=== PATIENT | male | born 1965 | race Caucasian/White ===

== ENCOUNTER 2022-10-17 15:28 | Emergency (ER) | payer OTHER, SELFPAY ==
[2022-10-17 15:36] VITALS: BP 134/71; PULSE 83; RESP 20; TEMP 35.8; O2SAT 95; BMI 33.1
--- NOTE | 2022-10-17 16:35 | ED.WOUNDLAC ---
HPI - Wound/Laceration General Chief Complaint: Laceration/Wound Stated Complaint: Cut L index finger with a wood chisle Time Seen by Provider: 10/17/22 15:53 History of Present Illness HPI narrative: This 57-year-old male comes in with a laceration to his left index finger. This occurred prior to arrival. 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 His tetanus was updated about 9 months ago. Related Data Home Medications Medication Instructions Recorded Confirmed atorvastatin 20 mg tablet 20 mg PO QDAY 06/23/22 06/23/22 clonazepam 0.5 mg tablet 0.5 mg PO QDAY 06/23/22 06/23/22 hydrochlorothiazide 25 mg tablet 25 mg PO QDAY 06/23/22 06/23/22 lisinopril 30 mg tablet 30 mg PO QDAY 06/23/22 06/23/22 pantoprazole 40 mg tablet,delayed 40 mg PO QDAY 06/23/22 06/23/22 release sertraline 150 mg capsule 150 mg PO QDAY 06/23/22 06/23/22 Previous Rx's Medication Instructions Recorded triamcinolone acetonide 0.1 % 1 applic topical BID #80 grams 06/23/22 topical cream Allergies Allergy/AdvReac Type Severity Reaction Status Date / Time No Known Allergies Allergy Unknown Verified 10/17/22 15:36 Review of Systems Status of ROS: Reports: 10 or more systems reviewed and unremarkable except as noted in History and below Narrative: Constitutional: No fevers, no weight gain or loss. Eyes: No discharge. No vision changes. HENT: No congestion, no sore throat, no ear pain. Cardiovascular: No chest pain, no palpitations. Respiratory: No shortness of breath, no wheezes, no cough. Gastrointestinal: No abdominal pain, no vomiting, no diarrhea. Genitourinary: No dysuria, no hematuria. Musculoskeletal: Normal range of motion. Left index finger laceration. Skin: No rashes, no pruritis. Neurological: No dizziness, weakness, sensory change, speech change. Endo/Heme/Allergies: No bruising or bleeding. No polydipsia. Pysch: no suicidality, no anxiety, no insomnia. All other systems reviewed and are negative. [facility] Medical History (Updated 10/17/22 @ 16:38 by Jad Balderas MD) History of asthma History of chronic obstructive lung disease Surgical History (Updated 06/01/22 @ 10:35 by Angeles Mckeon) History of cholecystectomy (2010) Status post carpal tunnel release Social History Smoking Status: Former smoker Do you use any of these nicotine containing products: None Second hand tobacco smoke exposure: No How often do you have a drink containing alcohol: monthly or less How many standard drinks containing alcohol do you have on a typical day: 1 or 2 How often do you have six or more drinks on one occasion: Never AUDIT-C Alcohol total score: 1 Non-prescribed substance use: denies use service: Yes Exam Narrative: Exam Narrative: Constitutional: Well-developed, well-nourished, no acute distress. HEENT: Normocephalic, atraumatic. Neck: Normal range of motion. Nontender. Supple. Heart: Intact distal pulses. Lungs: No chest discomfort. No wheezes, rhonchi, or rales. Abdomen: Nontender. Back: Normal range of motion. Extremities: Normal range of motion. 2 cm linear laceration across the dorsal aspect of the proximal portion of the left index finger. No tendon or vascular dysfunction. Skin: Intact. No rash. Warm. No erythema or pallor. Neurologic: No altered sensation. No weakness. Alert and oriented. Psychiatric: No suicidality. No anxiety or depression. No insomnia. Nursing notes and vitals signs are reviewed. Const: Vital Signs, click to edit/add: Vital Signs - 24 hr 10/17/22 15:36 Temperature 96.4 F L Pulse Rate [Pulse Oximeter] 83 Respiratory Rate 20 Blood Pressure [Le ft Upper Arm] 134/71 Pulse Oximetry 95 Oxygen Delivery Me thod Room Air Course Vital Signs Vital signs: Initial Vital Signs Temperature 96.4 F L 10/17/22 15:36 Temperature Source Temporal Artery Scan 10/17/22 15:36 Pulse Rate 83 10/17/22 15:36 Pulse Rhythm 10/17/22 15:36 Respiratory Rate 20 10/17/22 15:36 Blood Pressure 134/71 10/17/22 15:36 Blood Pressure Mean 92 10/17/22 15:36 Blood Pressure Position Supine 10/17/22 15:36 Pulse Oximetry 95 10/17/22 15:36 Oxygen Delivery Method 10/17/22 15:36 Vital Signs Temperature 96.4 F L 10/17/22 15:36 Pulse Rate 83 10/17/22 15:36 Respiratory Rate 20 10/17/22 15:36 Blood Pressure 134/71 10/17/22 15:36 Pulse Oximetry 95 10/17/22 15:36 Oxygen Delivery Method 10/17/22 15:36 Temperature 96.4 F L 10/17/22 15:36 Pulse Rate 83 10/17/22 15:36 Respiratory Rate 20 10/17/22 15:36 Blood Pressure 134/71 10/17/22 15:36 Pulse Oximetry 95 10/17/22 15:36 Oxygen Delivery Method 10/17/22 15:36 MDM - Wound/Laceration MDM Narrative Medical decision making narrative: This patient comes in with a laceration to his left index finger. The wound was cleansed and explored to its base. I did describe options for repair. The patient elected to have Dermabond applied. Wound edges were nicely approximated with this repair. A Band-Aid was then applied and instructions were given regarding wound care. Discharge Plan Discharge Clinical Impression: Finger laceration Patient Disposition: Home, Self-Care Condition: Improved Additional Instructions: Keep wound clean and dry. Follow up with MD or return if worsening. Prescriptions: No Action lisinopril 30 mg tablet 30 mg PO QDAY atorvastatin 20 mg tablet 20 mg PO QDAY clonazepam 0.5 mg tablet 0.5 mg PO QDAY sertraline 150 mg capsule 150 mg PO QDAY hydrochlorothiazide 25 mg tablet 25 mg PO QDAY pantoprazole 40 mg tablet,delayed release (DR/EC) 40 mg PO QDAY triamcinolone acetonide 0.1 % cream 1 applic topical BID Qty: 80 0RF Follow Up/Referrals: Homero Calderon MD [Primary Care Provider] - Stand Alone Forms: [employer] Info Instructions
== END 2022-10-17 16:51 | disposition home or self-care (01) ==
PROVIDERS: Emergency Provider Emergency Medicine Emergency Medical Services; PCP Internal Medicine
DX: S61.211A Laceration without foreign body of left index finger without damage to nail, initial encounter (principal); W26.9XXA Contact with unspecified sharp object(s), initial encounter
CPT/HCPCS: 12001; 99283; 99284

== ENCOUNTER 2023-01-16 16:27 | Emergency (ER) | payer OTHER, SELFPAY ==
[2023-01-16 16:41] VITALS: BP 148/88; PULSE 93; RESP 17; TEMP 36.3; O2SAT 96; BMI 32.5
--- NOTE | 2023-01-16 17:34 | ED_ITS ---
HPI - General Adult General Chief complaint: Cough Stated complaint: Covid induced bronchitis Time Seen by Provider: 01/16/23 16:36 History of Present Illness HPI narrative: Patient is a 57-year-old male with past medical history notable for remote tobacco use, asthma and possible COPD. A couple of days ago he developed a little bit of congestion and runny nose. Yesterday he developed a cough and today he tested positive for COVID. He says he has not terribly concerned about the COVID itself but he does have concerns about getting bronchitis as he says he often ends up with bronchitis when he gets sick. He has not had fevers, chest pain or shortness of breath. Otherwise is feeling well. No longer smokes. Related Data Home Medications Medication Instructions Recorded Confirmed hydrochlorothiazide 25 mg tablet 25 mg PO QDAY 06/23/22 11/09/22 lisinopril 30 mg tablet 30 mg PO QDAY 06/23/22 11/09/22 budesonide-formoterol HFA 160 2 puff inhalation BID 11/09/22 11/09/22 mcg-4.5 mcg/actuation aerosol inhaler vardenafil 20 mg tablet 20 mg PO 11/09/22 11/09/22 Previous Rx's Medication Instructions Recorded triamcinolone acetonide 0.1 % 1 applic topical BID #80 grams 06/23/22 topical cream albuterol sulfate 90 mcg/actuation 2 puff inhalation Q6H PRN 11/09/22 aerosol inhaler shortness of breath or wheezing #8.5 grams celecoxib 200 mg capsule (Celebrex) 200 mg PO BID PRN pain #60 caps 11/09/22 clonazepam 0.5 mg tablet 0.5 - 1 mg PO QDAY #180 tabs 11/09/22 metformin 750 mg tablet,extended 750 mg PO QDAY #90 tabs 11/09/22 release 24 hr pantoprazole 40 mg tablet,delayed 40 mg PO QDAY #90 tabs 11/09/22 release sertraline 100 mg tablet 150 mg PO QDAY #135 tabs 11/09/22 benzonatate 200 mg capsule 200 mg PO TID PRN cough #20 caps 01/16/23 Allergies Allergy/AdvReac Type Severity Reaction Status Date / Time No Known Drug Allergies Allergy Verified 11/09/22 15:09 Review of Systems Status of ROS: Reports: 6 or more systems reviewed and unremarkable except as noted in History and below [facility] Medical History Allergic rhinitis ?J30.9 - Allergic rhinitis, unspecified (ICD-10) Cellulitis of left lower extremity ?L03.116 - Cellulitis of left lower limb (ICD-10) Cellulitis of right lower extremity ?L03.115 - Cellulitis of right lower limb (ICD-10) Gastroesophageal reflux disease ?K21.9 - Gastro-esophageal reflux disease without esophagitis (ICD-10) Generalized anxiety disorder ?F41.1 - Generalized anxiety disorder (ICD-10) 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) ?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.9 - Disorder of gingiva and edentulous alveolar ridge, unspecified (ICD- 10) Hypertension ?I10 - Essential (primary) hypertension (ICD-10) Mild persistent asthma ?J45.30 - Mild persistent asthma, uncomplicated (ICD-10) REM behavioral disorder ?G47.52 - REM sleep behavior disorder (ICD-10) Type 2 diabetes mellitus ?E11.9 - Type 2 diabetes mellitus without complications (ICD-10) Surgical History History of cholecystectomy (2010) ?Z90.49 - Acquired absence of other specified parts of digestive tract (ICD- 10) Status post carpal tunnel release ?Z98.890 - Other specified postprocedural states (ICD-10) 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 In general, an alert, well-appearing patient. Head: Normocephalic, atraumatic. Eyes: Pupils are equal reactive. Extraocular movements are full. Conjunctivae are normal. ENT: Mucous membranes are moist. Neck: Supple without lymphadenopathy. Heart: Regular rate and rhythm. No murmur or rub. Lungs: Clear bilaterally. No increased work of breathing, crackles or wheezes. Abdomen: Soft and nontender. No organomegaly. Extremities: Well perfused. Neurologic: Patient is alert and oriented to person and place. Speech is fluent. Face is symmetric. Moves all extremities equally. Affect: Normal. Skin: Warm and dry. Well perfused. Const: Vital Signs, click to edit/add: Vital Signs - 24 hr 01/16/23 16:41 Temperature 97.3 F L Pulse Rate [Pulse Oximeter] 93 Respiratory Rate 17 Blood Pressure [Ri ght Upper Arm] 148/88 H Pulse Oximetry 96 Oxygen Delivery Me thod Room Air Documenting provider has reviewed patient's vital signs: yes Course Course Hospital Course: We discussed Paxil of it, given his comorbidities I did recommend that we at least have a conversation about it. He is on clonazepam, which does have a prohibited interaction with Paxlovid. He takes this for his REM behavioral disorder. He says he would just as soon not take Paxil of it, he reiterated that he is not particularly concerned about severe symptoms from COVID. He does feel like he would benefit from prednisone and he says Tessalon Perles tend to work well for him for cough. Right now, he is not showing signs of significant bronchospasm, no evidence of pneumonia, PE, or other acute complication. Discussed that if he has worsening shortness of breath, he should be seen again. An oximeter is an option to keep an eye on his O2 sats at home. Primary care follow-up if ongoing concerns. Vital Signs Vital signs: Initial Vital Signs Temperature 97.3 F L 01/16/23 16:41 Temperature Source Temporal Artery Scan 01/16/23 16:41 Pulse Rate 93 01/16/23 16:41 Respiratory Rate 17 01/16/23 16:41 Blood Pressure 148/88 H 01/16/23 16:41 Blood Pressure Mean 108 01/16/23 16:41 Pulse Oximetry 96 01/16/23 16:41 Oxygen Delivery Method Room Air 01/16/23 16:41 Vital Signs Temperature 97.3 F L 01/16/23 16:41 Pulse Rate 93 01/16/23 16:41 Respiratory Rate 17 01/16/23 16:41 Blood Pressure 148/88 H 01/16/23 16:41 Pulse Oximetry 96 01/16/23 16:41 Oxygen Delivery Method Room Air 01/16/23 16:41 Temperature 97.3 F L 01/16/23 16:41 Pulse Rate 93 01/16/23 16:41 Respiratory Rate 17 01/16/23 16:41 Blood Pressure 148/88 H 01/16/23 16:41 Pulse Oximetry 96 01/16/23 16:41 Oxygen Delivery Method Room Air 01/16/23 16:41 Discharge Plan Discharge Clinical Impression: COVID-19, Asthma Patient Disposition: Home, Self-Care Condition: Stable Instructions: COVID-19 (Coronavirus Disease 2019) (ED) Additional Instructions: Prednisone as prescribed. Tessalon Perles if needed. For worsening respiratory symptoms, see clinic or return to the ER. Consider of home oximeter to monitor oxygen saturations if you feel that your cough or shortness of breath are worsening. Prescriptions: New benzonatate 200 mg capsule 200 mg PO TID PRN (Reason: cough) Qty: 20 0RF No Action vardenafil 20 mg tablet 20 mg PO Patient Comments: TAKE 1 TABLET BY MOUTH 30-60 MINUTES PRIOR TO SEXUAL ACTIVITY; MAXIMUM 20 MG (1 TABLET) DAILY. budesonide-formoterol 160-4.5 mcg/actuation HFA aerosol inhaler 2 puff inhalation BID Patient Comments: INHALE 2 PUFFS TWICE A DAY. clonazepam 0.5 mg tablet 0.5 - 1 mg PO QDAY Qty: 180 1RF albuterol sulfate 90 mcg/actuation HFA aerosol inhaler 2 puff inhalation Q6H PRN (Reason: shortness of breath or wheezing) Qty: 8.5 5RF sertraline 100 mg tablet 150 mg PO QDAY Qty: 135 3RF pantoprazole 40 mg tablet,delayed release (DR/EC) 40 mg PO QDAY Qty: 90 3RF celecoxib [Celebrex] 200 mg capsule 200 mg PO BID PRN (Reason: pain) Qty: 60 5RF metformin 750 mg tablet extended release 24 hr 750 mg PO QDAY Qty: 90 1RF lisinopril 30 mg tablet 30 mg PO QDAY hydrochlorothiazide 25 mg tablet 25 mg PO QDAY triamcinolone acetonide 0.1 % cream 1 applic topical BID Qty: 80 0RF Follow Up/Referrals: Homero Calderon MD [Staff Physician] - Stand Alone Forms: [employer] Info Instructions
== END 2023-01-16 17:14 | disposition home or self-care (01) ==
PROVIDERS: Emergency Provider Emergency Medicine; PCP Family Medicine
DX: U07.1 COVID-19 (principal); J44.9 Chronic obstructive pulmonary disease, unspecified
CPT/HCPCS: 99284

== ENCOUNTER 2023-06-13 20:13 | Emergency (ER) | payer OTHER, SELFPAY ==
[2023-06-13 20:30] VITALS: BP 146/86; PULSE 93; RESP 18; TEMP 36.8; O2SAT 98; BMI 32.5
[2023-06-14] MEDS: cephALEXin 500 MG CAPSULE PO (00:01)
--- NOTE | 2023-06-14 01:47 | ED_ITS ---
HPI - General Adult General Date Seen: 06/13/23 Chief complaint: Extremity Pain/Injury, Upper Stated complaint: Septic arthritis Time Seen by Provider: 06/13/23 23:05 History of Present Illness HPI narrative: This is a very pleasant 58-year-old male with a past medical history of type 2 diabetes on metformin (well controlled, recent A1c was 5.5) hypertension, GERD, anxiety, previous lower extremity cellulitis, who presents to the ER today with his with concerns for an infection on his left hand, ring finger. He does not have any known recent trauma to his finger. He does note that his hobby is wood working so he does sometimes get slivers but has not had a slivers in that finger lately. He has had a sliver in the contralateral hand for the past several weeks. He does have a chronic brownish lesion affecting the fingernail/nail bed of that finger this been present for quite some time. He does not think it is a recent injury or a foreign body. Yesterday he began to have discomfort, redness, and swelling involving the distal end of the finger/in the distal phalanges. No known trauma or injury. It was not really affecting the finger pad more than the dorsum. It was the entire end of the finger. It has been gradually spreading proximally and now has spread as far proximal as the PIP joint. Proximal to that, over the proximal phalanges and MCP joint, his finger feels normal. The distal 2/3 of the ankle is erythematous, tender to the touch, slightly warm. It feels swollen. He took off his wedding ring at home. He has not had any fevers or chills. No other red streaks movement of his hand. Related Data Home Medications Medication Instructions Recorded Confirmed hydrochlorothiazide 25 mg tablet 25 mg PO QDAY 06/23/22 04/27/23 lisinopril 30 mg tablet 30 mg PO QDAY 06/23/22 04/27/23 budesonide-formoterol HFA 160 2 puff inhalation BID 11/09/22 04/27/23 mcg-4.5 mcg/actuation aerosol inhaler vardenafil 20 mg tablet 20 mg PO 11/09/22 04/27/23 Previous Rx's Medication Instructions Recorded triamcinolone acetonide 0.1 % 1 applic topical BID #80 grams 09/06/22 topical cream celecoxib 200 mg capsule (Celebrex) 200 mg PO BID PRN pain #60 caps 11/09/22 clonazepam 0.5 mg tablet 0.5 - 1 mg (1 - 2 x 0.5 mg) PO 11/09/22 QDAY #180 tabs pantoprazole 40 mg tablet,delayed 40 mg PO QDAY #90 tabs 11/09/22 release sertraline 100 mg tablet 150 mg (1.5 x 100 mg) PO QDAY #135 11/09/22 tabs metformin 750 mg tablet,extended 750 mg PO QDAY #90 tabs 05/05/23 release 24 hr albuterol sulfate 90 mcg/actuation 2 puff inhalation Q6H PRN 05/11/23 aerosol inhaler shortness of breath or wheezing #8.5 grams cephalexin 500 mg capsule 500 mg PO QID 10 days #40 caps 06/13/23 Allergies Allergy/AdvReac Type Severity Reaction Status Date / Time No Known Drug Allergies Allergy Verified 06/13/23 20:33 [facility] Medical History Allergic rhinitis ?J30.9 - Allergic rhinitis, unspecified (ICD-10) Cellulitis of left lower extremity ?L03.116 - Cellulitis of left lower limb (ICD-10) Cellulitis of right lower extremity ?L03.115 - Cellulitis of right lower limb (ICD-10) Gastroesophageal reflux disease ?K21.9 - Gastro-esophageal reflux disease without esophagitis (ICD-10) Generalized anxiety disorder ?F41.1 - Generalized anxiety disorder (ICD-10) 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) ?K06.9 - Disorder of gingiva and edentulous alveolar ridge, unspecified (ICD- 10) Hypertension ?I10 - Essential (primary) hypertension (ICD-10) Mild persistent asthma ?J45.30 - Mild persistent asthma, uncomplicated (ICD-10) REM behavioral disorder ?G47.52 - REM sleep behavior disorder (ICD-10) Type 2 diabetes mellitus ?E11.9 - Type 2 diabetes mellitus without complications (ICD-10) Surgical History History of cholecystectomy (2010) ?Z90.49 - Acquired absence of other specified parts of digestive tract (ICD- 10) Status post carpal tunnel release ?Z98.890 - Other specified postprocedural states (ICD-10) Social History Narrative: resident engineer Smoking Status: Former smoker Do you use any of these nicotine containing products: None Second hand tobacco smoke exposure: No How often do you have a drink containing alcohol: monthly or less How many standard drinks containing alcohol do you have on a typical day: 1 or 2 How often do you have six or more drinks on one occasion: Never AUDIT-C Alcohol total score: 1 Non-prescribed substance use: denies use Little interest or pleasure in doing things: not at all Feeling down, depressed, or hopeless: not at all service: Yes Exam Narrative: Exam Narrative: Constitutional: Appears well-developed and well-nourished. Alert. Conversant. N on toxic. HENT: Head: Atraumatic. Nose: Nose normal. Mouth/Throat: Oral mucosa is clear and moist. no trismus. Pharynx normal. Tonsils symmetric. No tonsillar enlargement, erythema, or exudate. Eyes: Conjunctivae normal. EOM normal. Pupils equal, round, and reactive to light. No scleral icterus. Neck: Normal range of motion. Neck supple. No tracheal deviation present. Cardiovascular: Normal rate, regular rhythm. Symmetric radial artery pulses Pulmonary/Chest: Effort normal. No stridor. No respiratory distress. Musculoskeletal: RUE: Normal range of motion. No tenderness. No deformity LUE: Normal normal except for the 4th digit of the left hand. The patient has subtle swelling and visible erythema affecting the finger from the PIP joint out to the distal end of the finger tip. Although it is mildly swollen it is not really a ?sausage digit? or showing fusiform swelling. He is mildly tender to palpation. He is more tender dorsally than on the volar aspect. No definite fluctuance. No pain with flexion and extension but he has difficulty fully flexing due to the swelling and tightness in the finger. No pain with passive extension. He does have a brownish/maroon lesion affecting the fingernail/nail bed of that digit. He thinks this is been present for quite a long time it is probably not a foreign body. RLE: Normal range of motion. No edema. No tenderness. No deformity LLE: Normal range of motion. No edema. No tenderness. No deformity Lymph: No cervical adenopathy. Neurological: Alert and oriented to person, place, and time. Normal strength. CN II-VII intact. No sensory deficit. GCS eye subscore is 4. GCS verbal subscore is 5. GCS motor subscore is 6. Normal coordination Skin: Skin is warm and dry. No rash noted. No pallor. Normal capillary refill. Psychiatric: Normal mood. Normal affect. Const: Vital Signs, click to edit/add: Vital Signs - 24 hr 06/13/23 20:30 Temperature 98.3 F Pulse Rate [Right Pulse Oximeter] 93 Respiratory Rate 18 Blood Pressure [Ri ght Upper Arm] 146/86 H Pulse Oximetry 98 Oxygen Delivery Me thod Room Air Course Vital Signs Vital signs: Initial Vital Signs Temperature 98.3 F 06/13/23 20:30 Temperature Source Temporal Artery Scan 06/13/23 20:30 Pulse Rate 93 06/13/23 20:30 Pulse Rhythm Regular 06/13/23 20:30 Pulse Strength 3+ Normal 06/13/23 20:30 Respiratory Rate 18 06/13/23 20:30 Blood Pressure 146/86 H 06/13/23 20:30 Blood Pressure Mean 106 H 06/13/23 20:30 Blood Pressure Position Sitting 06/13/23 20:30 Pulse Oximetry 98 06/13/23 20:30 Oxygen Delivery Method Room Air 06/13/23 20:30 Vital Signs Temperature 98.3 F 06/13/23 20:30 Pulse Rate 93 06/13/23 20:30 Respiratory Rate 18 06/13/23 20:30 Blood Pressure 146/86 H 06/13/23 20:30 Pulse Oximetry 98 06/13/23 20:30 Oxygen Delivery Method Room Air 06/13/23 20:30 Temperature 98.3 F 06/13/23 20:30 Pulse Rate 93 06/13/23 20:30 Respiratory Rate 18 06/13/23 20:30 Blood Pressure 146/86 H 06/13/23 20:30 Pulse Oximetry 98 06/13/23 20:30 Oxygen Delivery Method Room Air 06/13/23 20:30 Medical Decision Making MDM Narrative Medical decision making narrative: This patient presents for evaluation of redness and swelling involving the distal 2/3 of his left hand, ring finger. It began at the distal end of the finger yesterday is been spreading proximally since then.. The history, physical exam is consistent with cellulitis. There do not appear at this time to be any complication of cellulitis including abscess, necrotizing fascitis, lymphangitis, lymphadenitis, osteomyelitis, sepsis, or shock. Differential would also include flexor tenosynovitis. At this point he does not have any exam typical for that and no definite can able signs. The patient is not immunosuppressed. He does have diabetes but it is well controlled.. Supportive outpatient management is indicated with antibiotics. Although at this point I do not think he needs immediate transfer for operative debridement, I did consult with [facility] and arrange a plan for close outpatient follow- up in the orthopedic clinic for re-evaluation. Discussed with the patient and his the potential that he may need I and D if he does develop purulence in the finger or worsening signs of flexor tenosynovitis. The patient is instructed to follow-up with orthopedics within 1-2 days to ensure no progression and rapid resolution and given precautions to return if high fever, spread greater than 2cm outside of the current area, worsening pain, vomiting or any other worsening. Questions answered and return precautions reviewed. Discharge Plan Discharge Clinical Impression: Cellulitis Patient Disposition: Home, Self-Care Condition: Stable Instructions: Cellulitis (ED) Additional Instructions: Please come back to the ER or see the orthopedic doctors right away if you have worsening symptoms such as spreading redness, fever, worsening pain, discoloration of your finger, or if you have any other concerns. He received your 1st dose of antibiotics here in the ER [facility]. Please rukhsana nue the antibiotics tomorrow and until the end of the course. You should receive a phone call tomorrow from the Orthopedic Clinic to arrange a recheck. If you do not receive a phone call by lunchtime, call the orthopedic clinic at [phone] to arrange follow-up within 1-2 days. Prescriptions: New cephalexin 500 mg capsule 500 mg PO QID 10 Days Qty: 40 0RF No Action vardenafil 20 mg tablet 20 mg PO Patient Comments: TAKE 1 TABLET BY MOUTH 30-60 MINUTES PRIOR TO SEXUAL ACTIVITY; MAXIMUM 20 MG (1 TABLET) DAILY. budesonide-formoterol 160-4.5 mcg/actuation HFA aerosol inhaler 2 puff inhalation BID Patient Comments: INHALE 2 PUFFS TWICE A DAY. clonazepam 0.5 mg tablet 0.5 - 1 mg PO QDAY Qty: 180 1RF sertraline 100 mg tablet 150 mg PO QDAY Qty: 135 3RF pantoprazole 40 mg tablet,delayed release (DR/EC) 40 mg PO QDAY Qty: 90 3RF celecoxib [Celebrex] 200 mg capsule 200 mg PO BID PRN (Reason: pain) Qty: 60 5RF lisinopril 30 mg tablet 30 mg PO QDAY hydrochlorothiazide 25 mg tablet 25 mg PO QDAY triamcinolone acetonide 0.1 % cream 1 applic topical BID Qty: 80 0RF metformin 750 mg tablet extended release 24 hr 750 mg PO QDAY Qty: 90 0RF albuterol sulfate 90 mcg/actuation HFA aerosol inhaler 2 puff inhalation Q6H PRN (Reason: shortness of breath or wheezing) Qty: 8.5 5RF Follow Up/Referrals: Rayray Woodward MD [Primary Care Provider] - Stand Alone Forms: [employer] Info Instructions
== END 2023-06-14 00:24 | disposition home or self-care (01) ==
LOC: ED 23:50
PROVIDERS: Emergency Provider Emergency Medicine; PCP Family Medicine
DX: L03.012 Cellulitis of left finger (principal)
CPT/HCPCS: 90471; 99283; 99284; A9270

== ENCOUNTER 2023-06-16 10:58 | Outpatient (CLI) | payer OTHER, SELFPAY ==
[2023-06-16 13:40] LABS: Basophils Absolute Auto 0.05 K/uL (0.00-0.30); Basophils Percent Auto 0.7 % (0.0-3.0); Eosinophils Absolute Auto 0.42 K/uL (0.00-0.50); Eosinophils Percent Auto 5.7 % (0.0-7.0); Hematocrit 44.8 % (37.0-53.0); Immature Granulocytes Abs Auto 0.02 K/uL (0.00-0.30); Immature Granulocytes Pct Auto 0.3 %; Lymphocytes Percent Auto 19.4 % (20-44); Mean Corpuscular HGB Conc 34 gm/dL (32-36); Mean Corpuscular Hemoglobin 29 pg (26-34); Mean Corpuscular Volume 87 fL (80-100); Monocytes Percent Auto 12.5 % (0.0-11.0); Neutrophils Absolute Auto 4.52 K/uL (1.7-7.0); Neutrophils Percent Auto 61.4 % (42.0-72.0); Platelet Count* 155 K/uL (140-440); RDW Coefficient of Variation % 13.1 % (11.5-15.5); Red Blood Count 5.17 m/uL (4.30-5.90); White Blood Count* 7.36 K/uL (4.50-11.00)
[2023-06-16 13:49] LABS: Chloride* 95 mmol/L (96-114); Potassium* 3.6 mmol/L (3.6-5.1); Sodium* 134 mmol/L (135-149)
[2023-06-16 13:51] LABS: Cholesterol* 164 mg/dL (90-199); Creatinine* 1.1 mg/dL (0.5-1.5); Estimated Glomerular Filt Rate 77 ml/min; Slide Review Reflex No
[2023-06-16 13:52] LABS: Anion Gap 12 mEq/L (7-15); Blood Urea Nitrogen* 15 mg/dL (7-30); Calcium* 9.3 mg/dL (8.4-10.6); Carbon Dioxide* 27 mmol/L (20-32); Glucose* 112 mg/dL (60-115); HDL Cholesterol* 27 mg/dL (>=40); LDL Cholesterol Calculated 93 mg/dL (<100); Triglycerides* 222 mg/dL (40-149)
[2023-06-16 14:23] LABS: PSA Screen* 0.79 ng/mL (0.10-4.00)
[2023-06-18 00:28] LABS: Testosterone, Adult Male 327 ng/dL (300-890)
== END 2023-06-16 10:59 | disposition home or self-care (01) ==
PROVIDERS: PCP Family Medicine; Visit Provider Family Medicine
DX: I10 Essential (primary) hypertension (principal); N52.9 Male erectile dysfunction, unspecified; R53.83 Other fatigue; L03.90 Cellulitis, unspecified; Z12.5 Encounter for screening for malignant neoplasm of prostate
CPT/HCPCS: 80048; 80061; 84153; 84403; 85025

== ENCOUNTER 2023-08-18 08:27 | Outpatient (CLI) | payer OTHER, SELFPAY ==
--- NOTE | 2023-08-18 08:15 | CRLHL7_ITS ---
For Patients: As a result of the Century Cures Act, medical imaging exams and procedure reports are released immediately into your electronic medical record. You may view this report before your referring provider. If you have questions, please contact your health care provider. Technique: Double-contrast esophagram performed after the uneventful administration of effervescent crystals and thick barium. Fluoroscopy time 1 minutes 7 seconds. Indication: Dysphagia Comparison: None. Findings: Esophagus: Mild incidental prominence of the cricopharyngeus. No aspiration. No obstruction. No stricture or ulcer. No mucosal abnormality. Decreased clearance of contrast. Gastroesophageal reflux: Reflux exhibited to the cervical esophagus. Impression: Reflux to the cervical esophagus. No hiatal hernia. Mild decreased esophageal motility. Dictated by Rayray Hamilton MD @ 08/18/2023 9:50:23 AM (Electronically Signed)
== END 2023-08-18 08:28 | disposition home or self-care (01) ==
PROVIDERS: PCP Family Medicine; Visit Provider Otolaryngology
DX: R13.10 Dysphagia, unspecified (principal); K21.9 Gastro-esophageal reflux disease without esophagitis
CPT/HCPCS: 74221

== ENCOUNTER 2024-06-20 11:44 | Outpatient (CLI) | payer OTHER, SELFPAY | END 2024-06-20 11:45 | disposition home or self-care (01) | PROVIDERS: PCP Family Medicine; Visit Provider Family Medicine | DX: I10 Essential (primary) hypertension (principal); Z12.5 Encounter for screening for malignant neoplasm of prostate; Z13.220 Encounter for screening for lipoid disorders | CPT/HCPCS: 80048; 80061; G0103 ==

== ENCOUNTER 2025-08-31 08:14 | Outpatient (CLI) | payer OTHER, SELFPAY | END 2025-08-31 08:15 | disposition home or self-care (01) | PROVIDERS: PCP Family Medicine; Visit Provider Family Medicine | DX: I10 Essential (primary) hypertension (principal); Z12.5 Encounter for screening for malignant neoplasm of prostate | CPT/HCPCS: 80048; 80061; G0103 ==